=== PATIENT | male | born 1955 | race Caucasian/White ===

== ENCOUNTER 2020-07-25 18:53 | Observation (INO) ==
[2020-07-25] MEDS ORDERED: GLUCAGON 1 MG VIAL IM PRN (20:45)
[2020-07-25] MEDS ORDERED: DEXTROSE 50% 25 GM/50 ML VIAL IV PRN (20:45)
[2020-07-25] MEDS ORDERED: ONDANSETRON 4 MG/2 ML VIAL IV PRN (20:52)
[2020-07-25] MEDS ORDERED: DOCUSATE SODIUM 100 MG CAPSULE PO PRN (20:52)
[2020-07-25] MEDS ORDERED: MELATONIN 3 MG TABLET PO PRN (22:09)
[2020-07-25] MEDS: MIDODRINE 5 MG TABLET PO SCH (22:26)
[2020-07-25] MEDS: ZALEPLON 5 MG CAPSULE PO PRN (22:27)
[2020-07-25] MEDS: INSULIN LISPRO 100 UNIT/ML SUBCUT SCH (22:47)
[2020-07-26 05:49] LABS: Basophils # 0.1 10*3/uL (0.0-0.2); Basophils % 0.6 % (0.0-0.8); Eosinophils # 0.2 10*3/uL (0.0-0.87); Eosinophils % 2.3 % (0.00-10.9); Hematocrit 38.8 VOL% (42.0-52.0); Hemoglobin 12.5 GM/DL (14.0-18.0); Immature Granulocytes % 0.3 %; Immature Granulocytes Absolute 0.03 #; Lymphocytes # 3.6 10*3/uL (1.4-4.0); Mean Corpuscular HGB Conc 32.2 GM/DL (32-36); Mean Corpuscular Volume 90.4 FL (87-102); Mean Platelet Volume 10.8 FL (9.6-12.0); Neutrophils % 54.8 % (38.7-73.9); Platelet Count 182 T/CUMM (130-400); Red Blood Count 4.29 MC/CUMM (3.8-5.5); Red Cell Distribution Width 14.4 % (9.3-17.3); White Blood Count 10.4 T/CUMM (4-12)
[2020-07-26 06:20] LABS: INR 2.2; PT Patient Result 22.4 SECS (9.8-11.9)
[2020-07-26 06:25] LABS: Albumin 3.5 G/DL (3.4-5.0); Bilirubin,Total 1.9 MG/DL (0.2-1.0); Calcium 9.2 MG/DL (8.5-10.1); Osmolality,Calculated 289.1 MOS/KG (273-304); Potassium 4.5 MMOL/L (3.5-5.1); Thyroid Stimulating Hormone 2.29 uIU/ml (0.358-3.74); Total Protein 7.8 G/DL (6.4-8.2)
[2020-07-26] MEDS ORDERED: LACTATED RINGERS 1,000 ML IV ONE (07:06)
[2020-07-26] MEDS: INSULIN LISPRO 100 UNIT/ML SUBCUT SCH ×4 (08:02→20:52)
[2020-07-26] MEDS: MIDODRINE 5 MG TABLET PO SCH ×3 (08:53→20:51)
[2020-07-26] MEDS: LACTATED RINGERS 1,000 ML IV SCH ×3 (10:45→23:55)
[2020-07-26] MEDS: SKIN HEALING OINT (AQUAPHOR) 50 GM TUBE TOP SCH (16:02)
[2020-07-26] MEDS: ZALEPLON 5 MG CAPSULE PO PRN (20:51)
[2020-07-26] MEDS: GABAPENTIN 400 MG CAPSULE PO SCH (20:51)
[2020-07-27 05:13] LABS: Basophils # 0.1 10*3/uL (0.0-0.2); Basophils % 0.7 % (0.0-0.8); Eosinophils # 0.3 10*3/uL (0.0-0.87); Eosinophils % 4.4 % (0.00-10.9); Hematocrit 32.1 VOL% (42.0-52.0); Hemoglobin 10.1 GM/DL (14.0-18.0); Immature Granulocytes % 0.4 %; Immature Granulocytes Absolute 0.03 #; Lymphocytes # 2.2 10*3/uL (1.4-4.0); Lymphocytes % 29.6 % (21.2-54.2); Mean Corpuscular HGB Conc 31.5 GM/DL (32-36); Mean Corpuscular Volume 93.9 FL (87-102); Mean Platelet Volume 10.8 FL (9.6-12.0); Neutrophils % 56.9 % (38.7-73.9); Platelet Count 149 T/CUMM (130-400); Red Blood Count 3.42 MC/CUMM (3.8-5.5); Red Cell Distribution Width 14.4 % (9.3-17.3); White Blood Count 7.5 T/CUMM (4-12)
[2020-07-27 05:51] LABS: INR 2.1; PT Patient Result 21.3 SECS (9.8-11.9)
[2020-07-27 05:52] LABS: Calcium 8.6 MG/DL (8.5-10.1); Osmolality,Calculated 279.1 MOS/KG (273-304); Potassium 4.4 MMOL/L (3.5-5.1)
[2020-07-27] MEDS: INSULIN LISPRO 100 UNIT/ML SUBCUT SCH ×4 (08:00→21:31)
[2020-07-27] MEDS: LACTATED RINGERS 1,000 ML IV SCH ×2 (08:36→18:20)
[2020-07-27] MEDS: SOTALOL 80 MG TABLET PO SCH ×2 (09:00→20:52)
[2020-07-27] MEDS: SKIN HEALING OINT (AQUAPHOR) 50 GM TUBE TOP SCH (09:00)
[2020-07-27] MEDS: FUROSEMIDE 80 MG TABLET PO SCH (09:05)
[2020-07-27] MEDS: GABAPENTIN 400 MG CAPSULE PO SCH ×2 (09:05→20:52)
[2020-07-27] MEDS: MAGNESIUM OXIDE 400 MG TABLET PO SCH ×2 (09:05→20:53)
[2020-07-27] MEDS: MIDODRINE 5 MG TABLET PO SCH ×3 (09:05→20:53)
[2020-07-27] MEDS: ZALEPLON 5 MG CAPSULE PO PRN (22:55)
[2020-07-28] MEDS: LACTATED RINGERS 1,000 ML IV SCH ×2 (01:44→08:26)
[2020-07-28 05:45] LABS: Basophils # 0.1 10*3/uL (0.0-0.2); Basophils % 0.7 % (0.0-0.8); Eosinophils # 0.5 10*3/uL (0.0-0.87); Eosinophils % 6.9 % (0.00-10.9); Hematocrit 34.9 VOL% (42.0-52.0); Hemoglobin 11.1 GM/DL (14.0-18.0); Immature Granulocytes % 0.3 %; Immature Granulocytes Absolute 0.02 #; Lymphocytes # 2.1 10*3/uL (1.4-4.0); Lymphocytes % 28.3 % (21.2-54.2); Mean Corpuscular HGB Conc 31.8 GM/DL (32-36); Mean Corpuscular Volume 92.8 FL (87-102); Mean Platelet Volume 10.6 FL (9.6-12.0); Monocytes % 6.6 % (1.7-12.7); Neutrophils % 57.2 % (38.7-73.9); Platelet Count 161 T/CUMM (130-400); Red Blood Count 3.76 MC/CUMM (3.8-5.5); Red Cell Distribution Width 14.5 % (9.3-17.3); White Blood Count 7.3 T/CUMM (4-12)
[2020-07-28 06:13] LABS: Calcium 9.3 MG/DL (8.5-10.1); Osmolality,Calculated 277.1 MOS/KG (273-304); Potassium 4.5 MMOL/L (3.5-5.1)
[2020-07-28] MEDS: INSULIN LISPRO 100 UNIT/ML SUBCUT SCH (07:35)
[2020-07-28] MEDS: GABAPENTIN 400 MG CAPSULE PO SCH (08:25)
[2020-07-28] MEDS: MIDODRINE 5 MG TABLET PO SCH (08:26)
[2020-07-28] MEDS: FUROSEMIDE 80 MG TABLET PO SCH (08:26)
[2020-07-28] MEDS: SOTALOL 80 MG TABLET PO SCH (08:26)
[2020-07-28] MEDS: SKIN HEALING OINT (AQUAPHOR) 50 GM TUBE TOP SCH (09:10)
[2020-07-28 11:16] VITALS: BP 131/59
== END 2020-07-28 12:04 | disposition home or self-care (01) ==
LOC: EDUNIT# → EDBD → N.ED 18:53 → N.EDINP 18:53 → N.3E 21:57
PROVIDERS: ADMIT Internal Medicine; ATTEND Internal Medicine